=== PATIENT | male | born 1980 | race Caucasian/White ===

== ENCOUNTER 2021-04-19 16:02 | Emergency (ER) | payer OTHER, SELFPAY ==
--- NOTE | ~2021-04-19 | XR_ITS ---
EXAMINATION: XR shoulder LT min 2V INDICATION: Left shoulder pain TECHNIQUE: Four views of the left shoulder are submitted. COMPARISON: 07/24/2017 FINDINGS: There is no acute fracture. Again noted is an old healed fracture of the greater tuberosity of humerus. There is moderate glenohumeral joint osteoarthritis. The acromioclavicular joint is norm al. Soft tissues are unremarkable. IMPRESSION: 1. Osteoarthritis without acute osseous abnormality. Reviewed, dictated and finalized at location B. TILE INSTALLATION HELPER
--- NOTE | 2021-04-19 16:15 | ED.UPPEXIN ---
HPI - Extremity Injury (Upper) General Chief Complaint: Extremity Injury, Upper Stated Complaint: LT shoulder injury Source: patient Mode of arrival: ambulatory Limitations: no limitations History of Present Illness HPI narrative: 41-year-old man comes in today complaining of left shoulder pain that occurred 1 hour prior to presentation at the emergency department. Patient states that he was carrying something heavy when he lost his footing and fell. The heavy object pulled on his arm as he fell to the ground. He denies any other injuries. He denies any numbness or tingling. He has decreased range of motion. He denies prior shoulder surgeries or injuries. complaint: injury to: left Onset (ago): hour(s) (1) Other injuries: none Handedness: right Relieving factors: rest Exacerbating factors: movement of extremity Context: fall and injury Associated symptoms: denies other symptoms Related Data Allergies Allergy/AdvReac Type Severity Reaction Status Date / Time ketorolac Allergy Intermediate HIVES Verified 10/09/17 18:51 Penicillins Allergy Unknown Swelling Verified 10/09/17 18:51 Review of Systems Review of Systems: All systems reviewed & are unremarkable except as noted in HPI and below Cardiovascular: Cardiovascular: Denies chest pain and Denies radiating jaw, neck or arm pain Respiratory: Respiratory: Denies cough and Denies dyspnea Musculoskeletal: Musculoskeletal: Denies back pain, Reports arthralgias and Denies joint swelling Integumentary/Breasts: Skin/Breast: Denies pruritus, Denies erythema and Denies rash Neurologic: Reports vertigo, Reports dizziness and Reports syncope Hematologic/Lymphatic: Hematologic/Lymphatic: Denies easy bleeding and Denies easy bruising PMFSH Surgical History Surgical History (Updated 04/19/21 @ 16:53 by Basim Fiore MD) H/O elbow surgery History of left knee surgery History of surgery on right wrist Social History Social History (Updated 04/19/21 @ 16:53 by Basim Fiore MD) Smoking status: Current every day smoker Substance use: current Substance use type: marijuana Other substance usage details: Occasional Living arrangements: with family Occupation/Education: occupation Additional occupation/education comments: Car detailing Exam Const: General: healthy appearing and alert Orientation/consciousness: patient oriented x3 Limitations: no limitations Other: [id number] acute distress. HENMT: Head: normal to inspection Eyes: Conjunctivae: conjunctivae normal Pupils: Equal, round and reactive pupils present EOM: EOMs intact bilaterally Resp: Effort & Inspection: normal respiratory effort and not labored Auscultation: clear to auscultation bilaterally, no rales, no rhonchi and no wheezes Cardio: Rate: regular rate Rhythm: regular rhythm Heart sounds: no murmurs Skin: General skin exam: normal color, no jaundice and no pallor Rashes: no rashes Neuro: General: patient oriented x3, moves all extremities, no focal motor deficits and CN's II-XI intact bilaterally Speech: normal speech Gait exam (Neuro): Normal gait present Extrem: General: normal to inspection and no clubbing, cyanosis or edema Other: Tenderness to palpation at the left shoulder just below the acromion. No abnormal contour or tenderness over the clavicle or scapula. 90 degrees abduction, 90? flexion. Psych: Appearance: grossly normal and well kempt Mental Status: mental status grossly normal Affect: normal affect Attitude: cooperative Thought content: Yes Normal thought content present Course Vital Signs Vital signs: Vital Signs Temperature 36.7 C 04/19/21 16:22 Pulse Rate 97 04/19/21 16:22 Respiratory Rate 16 04/19/21 16:22 Blood Pressure 97/84 L 04/19/21 16:22 Pulse Oximetry 98 04/19/21 16:22 Temperature 36.7 C 04/19/21 16:22 Pulse Rate 97 04/19/21 16:22 Respiratory Rate 16 04/19/21 16:22 Blood Pressure 97/84 L /
[2021-04-19 16:22] VITALS: BP 97/84; PULSE 97; RESP 16; TEMP 36.7; O2SAT 98
[2021-04-19] MEDS: HYDROcodone/acetaminophen (*CRX) 5-325 MG TABLET 1 TAB PO (16:27)
[2021-04-19 17:05] VITALS: BP 138/70; PULSE 80; RESP 18; TEMP 37; O2SAT 98
== END 2021-04-19 17:06 | disposition home or self-care (01) ==
PROVIDERS: Emergency Provider Emergency Medicine; PCP Physician Assistant
DX: S46.912A Strain of unspecified muscle, fascia and tendon at shoulder and upper arm level, left arm, initial encounter (principal); W19.XXXA Unspecified fall, initial encounter
CPT/HCPCS: 73030; 99283; A9270

== ENCOUNTER 2021-06-27 20:28 | Emergency (ER) | payer OTHER, SELFPAY ==
--- NOTE | ~2021-06-27 | XR_ITS ---
XR chest 1V portable DATE: 06/27/2021 21:35 INDICATION: Cough TECHNIQUE: Portable upright AP chest on 06/27/2021 at 2131 hours COMPARISON: None FINDINGS: Normal heart size. No hilar or mediastinal enlargement. No pulmonary infiltrate or consolid ation, pleural effusion or pulmonary vascular congestion or pneumothorax. IMPRESSION: No active cardiopulmonary disease Reviewed, dictated and finalized at location A. P ACCOUNT DIRECTOR
[2021-06-27 20:36] VITALS: BP 124/86; PULSE 96; RESP 20; TEMP 36.9; O2SAT 100
--- NOTE | 2021-06-27 21:35 | ED.GENADULT ---
HPI - General Adult General Chief complaint: Upper Respiratory Infection Stated complaint: bodyaches, cough Time Seen by Provider: 06/27/21 21:25 Source: patient History of Present Illness HPI narrative: Patient is a 41 y/o male complaining of cough for 5 days. There is no alleviating or exacerbating factor. His cough is mostly dry cough. He also has sore throat, vomiting and diarrhea. He lost sense of taste and smell. He states that he has been vaccinated against COVID. Related Data Allergies Allergy/AdvReac Type Severity Reaction Status Date / Time ketorolac Allergy Intermediate HIVES Verified 10/09/17 18:51 Penicillins Allergy Unknown Swelling Verified 10/09/17 18:51 Review of Systems Constitutional: Constitutional: Denies chills, Denies fever(s), Reports headache(s) and Denies weakness Eyes: Eyes: Denies blurry vision ENT: Reports headache(s), Denies neck pain and Reports sore throat Cardiovascular: Cardiovascular: Denies chest pain and Denies dyspnea Respiratory: Respiratory: Reports cough and Denies dyspnea Gastrointestinal: Gastrointestinal: Denies abdominal pain, Reports diarrhea, Reports nausea and Reports vomiting Genitourinary: Genitourinary: Denies hematuria and Denies dysuria Musculoskeletal: Musculoskeletal: Denies back pain, Reports myalgias and Denies neck pain Neurologic: Reports headache(s) and Denies weakness [facility] Surgical History Surgical History (Updated 04/19/21 @ 16:53 by Basim Fiore MD) H/O elbow surgery History of left knee surgery History of surgery on right wrist Social History Social History (Updated 04/19/21 @ 16:53 by Basim Fiore MD) Smoking status: Current every day smoker Substance use: current Substance use type: marijuana Other substance usage details: Occasional Additional occupation/education comments: Car detailing Exam Const: General: no acute distress and well developed Orientation/consciousness: oriented to person, oriented to place, oriented to time and patient oriented x3 HENMT: Head: normocephalic Ears: external ears normal General nose exam: Normal external nose present Eyes: General: appearance normal, both eyes and all related structures Conjunctivae: conjunctivae normal Neck: Neck: normal visual inspection and full ROM Chest: Chest palpation & inspection: normal inspection of the chest and no tenderness Resp: Effort & Inspection: normal respiratory effort Auscultation: clear to auscultation bilaterally Cardio: Rate: regular rate Rhythm: regular rhythm GI: GI Palp: No abdominal tenderness and Yes Soft to palpation Skin: General skin exam: normal color and turgor normal Neuro: General: oriented to person, oriented to place, oriented to time and patient oriented x3 Cognition (Neuro): normal cognition Extrem: General: normal to inspection, full ROM and no pedal edema Psych: Appearance: grossly normal Mental Status: mental status grossly normal Affect: normal affect Course Vital Signs Vital signs: Vital Signs Temperature 36.9 C 06/27/21 20:36 Pulse Rate 96 06/27/21 20:36 Respiratory Rate 20 06/27/21 20:36 Blood Pressure 124/86 06/27/21 20:36 Pulse Oximetry 100 06/27/21 20:36 Temperature 36.9 C 06/27/21 20:36 Pulse Rate 76 06/27/21 22:57 Respiratory Rate 16 06/27/21 22:57 Blood Pressure 124/86 06/27/21 20:36 Pulse Oximetry 96 06/27/21 22:57 Medical Decision Making Vital Signs Vital Signs: Vital Signs Temperature 36.9 C 06/27/21 20:36 Pulse Rate 96 06/27/21 20:36 Respiratory Rate 20 06/27/21 20:36 Blood Pressure 124/86 06/27/21 20:36 Pulse Oximetry 100 06/27/21 20:36 Temperature 36.9 C 06/27/21 20:36 Pulse Rate 76 06/27/21 22:57 Respiratory Rate 16 06/27/21 22:57 Blood Pressure 124/86 06/27/21 20:36 Pulse Oximetry 96 06/27/21 22:57 Lab Data Result diagrams: 06/27/21 21:54 06/27/21 21:54 Labs:
[2021-06-27] MEDS: ONDANSETRON INJ 4 MG/2 ML VIAL IV PUSH (21:56)
[2021-06-27] MEDS: SODIUM CHLORIDE 0.9% IV 1,000 ML 999 ML IV CONT (21:56)
[2021-06-27 22:04] LABS: Basophils Percent Auto 0.3 % (0.2-1.2); Eosinophils Percent Auto 0.6 % (0-4.4); Hemoglobin 15.9 g/dL (14.0-18.0); Immature Granulocyte Absolute 0.02 K/mm3 (0.00-0.031); Immature Granulocyte Percent A 0.3 % (0-0.5); Lymphocytes Absolute Auto 0.67 K/mm3 (0.9-3.2); Lymphocytes Percent Auto 9.7 % (18.3-44.2); Mean Corpuscular HGB Conc 35.3 g/dl (32-36); Mean Corpuscular Hemoglobin 31.9 pg (26-34); Mean Corpuscular Volume 90.4 fl (80-100); Mean Platelet Volume 10.2 fl (7.4-10.4); Monocytes Absolute Auto 0.5 K/mm3 (0.1-0.6); Monocytes Percent Auto 7.2 % (2.6-8.5); Neutrophils Absolute Auto 5.7 K/mm3 (1.3-6.7); Neutrophils Percent Auto 81.9 % (45.5-73.1); Platelet Count Result 203 k/mm3 (150-375); Red Blood Count 4.98 M/mm3 (4.6-6.20); Red Cell Distribution Width 12.2 % (11.5-14.5); White Blood Count 6.9 K/mm3 (4.5-10.0)
[2021-06-27 22:15] LABS: Alanine Aminotransferase 21 U/L (4-50); Albumin Level 4.4 g/dL (3.5-5.1); Alkaline Phosphatase 61 U/L (38-126); Anion Gap 9 mmol/L (8-16); Aspartate Amino Transferase 29 U/L (17-59); Bilirubin,Total 0.6 mg/dL (0.2-1.3); Blood Urea Nitrogen 10 mg/dL (9-20); Calcium 8.9 mg/dL (8.4-10.2); Carbon Dioxide 25 mmol/L (22-30); Chloride 103 mmol/L (98-107); Estimated CRCL calculation 69 ml/min; Estimated Glomerular Filt Rate > 60; Glucose 104 mg/dL (65-110); Potassium 3.4 mmol/L (3.4-5.0); Sodium 137 mmol/L (137-145)
[2021-06-27 22:45] LABS: Add Urine Microscopic? YES; Appearance Urine Clear (Clear); Bilirubin Urine Negative (Negative); Blood Urine Negative (Negative); Color Urine Yellow (Yellow); Glucose Urine UA Negative (Negative); Ketones Urine Negative (Negative); Leukocyte Esterase Ur Negative LEU/UL (Negative); Mucus Urine Moderate /lpf; Nitrate Urine Negative (Negative); Protein Urine Negative (Negative); RBC Urine 0-2 /hpf (0-2); Specific Grav Ur 1.024 (1.001-1.035); WBC Urine 0-3 /hpf
[2021-06-27 22:57] VITALS: PULSE 76; RESP 16; O2SAT 96
[2021-06-27 23:40] LABS: Influenza A QL RT-PCR Negative (Negative); Influenza B QL RT-PCR Negative (Negative); SARS-CoV-2 RNA PCR Positive
== END 2021-06-28 00:21 | disposition home or self-care (01) ==
PROVIDERS: Emergency Provider Emergency Medicine; PCP Physician Assistant
DX: U07.1 COVID-19 (principal); R11.2 Nausea with vomiting, unspecified; R19.7 Diarrhea, unspecified; F17.200 Nicotine dependence, unspecified, uncomplicated
CPT/HCPCS: 36415; 71045; 80053; 81001; 85025; 87081; 87502; 87804; 87880; 96361; 96374; 99284; C9803; J2405; J7030; U0003; U0005

== ENCOUNTER 2021-06-30 20:09 | Emergency (ER) | payer OTHER, SELFPAY ==
--- NOTE | ~2021-06-30 | XR_ITS ---
EXAMINATION: XR chest 1V portable DATE: 06/30/2021 21:19 INDICATION: Dyspnea. TECHNIQUE: A single frontal view of the chest was obtained. COMPARISON: Chest single view 06/27/2021 FINDINGS: There is mild atelectasis in left lower lung zone. No pleural effusion or pneumothorax. The heart size is normal. IMPRESSION: 1. Mild atelectasis in left lower lung zone. Reviewed, dictated and finalized at location A. ER CARE CASE MANAGER
[2021-06-30 20:57] VITALS: BP 101/80; PULSE 64; RESP 18; TEMP 37.3; O2SAT 96
--- NOTE | 2021-06-30 21:05 | ED.SOB ---
HPI - SOB/Dyspnea General Chief Complaint: Unspecified Stated Complaint: COVID+ trouble breathing, chest pain Source: patient and RN notes reviewed Mode of arrival: ambulatory Limitations: no limitations History of Present Illness HPI Narrative: Patient tested positive for COVID 3 days ago. He states now he is having some pain in his chest wall and feels harder to breathe when he exerts himself just getting around the house. Denies any lower extremity calf tenderness. MD elicited complaint: cough and pain with inspiration Onset (ago): day(s) (1) Context: recent illness ( tested positive for COVID 3 days ago.) Timing: progressively worsening Severity: moderate Exacerbating factors: exertion and coughing Relieving factors: nothing Associated symptoms: pain with inspiration and cough Treatment prior to arrival: none Related Data Home oxygen amount: none Allergies Allergy/AdvReac Type Severity Reaction Status Date / Time ketorolac Allergy Intermediate HIVES Verified 10/09/17 18:51 Penicillins Allergy Unknown Swelling Verified 10/09/17 18:51 Review of Systems Review of Systems: All systems reviewed & are unremarkable except as noted in HPI and below Cardiovascular: Cardiovascular: Denies chest pain, Denies rapid heart rate and Denies radiating jaw, neck or arm pain Respiratory: Respiratory: Reports as per HPI, Reports chest congestion, Reports cough and Reports dyspnea Gastrointestinal: Gastrointestinal: Denies nausea and Denies vomiting Endocrine: Endocrine: Denies excessive sweating PMFSH Past Medical History Medical History (Updated 06/30/21 @ 21:51 by Hira Carrington MD) Anxiety and depression Surgical History Surgical History H/O elbow surgery History of left knee surgery History of surgery on right wrist Social History Social History Smoking status: Current every day smoker Substance use: current Substance use type: marijuana Other substance usage details: Occasional Additional occupation/education comments: Car detailing Exam Const: General: healthy appearing, no acute distress and alert Nutritional Appearance: well nourished and thin Orientation/consciousness: patient oriented x3 HENMT: Head: normal to inspection Ears: external ears normal Face and sinus: normal facial exam Mouth: Yes moist mucous membranes Eyes: Conjunctivae: conjunctivae normal Pupils: Equal, round and reactive pupils present EOM: EOMs intact bilaterally Neck: Neck: normal visual inspection Resp: Effort & Inspection: normal respiratory effort Auscultation: clear to auscultation bilaterally Cardio: Rate: regular rate Rhythm: regular rhythm GI: GI Palp: Yes Soft to palpation and No Tenderness to palpation present (GI) Auscultation: normal bowel sounds Back/Spine/Pelvis: Cervical Spine: cervical ROM normal Thoracic/Lumbar Spine: thoraco-lumbar ROM normal Skin: General skin exam: normal color Rashes: no rashes Neuro: General: patient oriented x3, moves all extremities, no meningeal signs, no focal motor deficits and CN's II-XI intact bilaterally Speech: normal speech Gait exam (Neuro): Normal gait present Extrem: General: normal to inspection and no clubbing, cyanosis or edema Psych: Mental Status: mental status grossly normal Affect: normal affect Attitude: cooperative Thought content: Yes Normal thought content present Course Course Emergency Course: patient advised that he is not needing supplemental oxygen and he is not in any respiratory distress. He does not have any comorbidities that would indicate that he should be on any outpatient therapy. At this time he should continue Tylenol Motrin and continue to quarantine as directed. Vital Signs Vital signs: Vital Signs Temperature 37.3 C 06/30/21 20:57 Pulse Rate 64 06/30/21 20:57 Respiratory Rate 18 06/30/21 20:57 Blood Pressur
[2021-06-30 21:26] LABS: Basophils Absolute Auto 0.02 K/mm3 (0.00-0.10); Basophils Percent Auto 0.5 % (0.0-1.0); Eosinophils Absolute Auto 0.01 K/mm3 (0.02-0.50); Eosinophils Percent Auto 0.2 % (1.0-6.0); Hematocrit 44.9 % (40.0-54.0); Immature Granulocyte Absolute 0.01 K/mm3 (0.00-0.00); Immature Granulocyte Percent A 0.2 % (0.0-0.0); Immature Platelet Fraction Pct 3.8 % (1.0-7.0); Lymphocytes Absolute Auto 1.41 K/mm3 (1.10-4.50); Mean Corpuscular HGB Conc 33.4 g/dL (32.0-36.0); Mean Corpuscular Hemoglobin 31.6 pg (27.0-31.0); Mean Corpuscular Volume 94.5 fL (78.0-102.0); Mean Platelet Volume 10.9 fl (8.7-11.0); Monocytes Absolute Auto 0.35 K/mm3 (0.10-0.90); Monocytes Percent Auto 8.4 % (2.0-11.0); Neutrophils Absolute Auto 2.4 K/mm3 (1.7-7.2); Neutrophils Percent Auto 56.7 % (50.0-70.0); Platelet Count Result 128 K/mm3 (150-420); Red Blood Count 4.75 M/mm3 (4.70-6.10); Red Cell Distribution Width 12.1 % (11.6-14.4); White Blood Count 4.2 K/mm3 (4.8-10.8)
[2021-06-30 21:37] LABS: D Dimer 0.19 mg/L (0.19-0.50)
[2021-06-30 21:38] LABS: Alanine Aminotransferase 21 U/L (16-63); Albumin Level 3.4 g/dL (3.4-5.0); Alkaline Phosphatase 55 U/L (46-116); Anion Gap 10 mmol/L (8-16); Aspartate Amino Transferase 17 U/L (15-37); Bilirubin,Total 0.2 mg/dL (0.00-1.00); Blood Urea Nitrogen 12 mg/dL (7-18); CRP < 0.5 mg/dL (0.0-0.9); Calcium 7.9 mg/dL (8.5-10.1); Carbon Dioxide 27 mmol/L (21-32); Chloride 103 mmol/L (98-108); Estimated CRCL calculation 58 ml/min; Estimated Glomerular Filt Rate 58; Glucose 91 mg/dL (70-99); Osmolality Calculated 289 mOsm/kg (285-295); Potassium 3.3 mmol/L (3.5-5.1); Sodium 140 mmol/L (136-145); Total Protein 6.8 g/dL (6.4-8.2)
[2021-06-30 21:43] LABS: Lactic Acid Reflex 0.9 mmol/L (0.4-2.0)
== END 2021-06-30 22:00 | disposition home or self-care (01) ==
PROVIDERS: Emergency Provider Emergency Medicine; PCP Physician Assistant
DX: U07.1 COVID-19 (principal)
CPT/HCPCS: 36415; 71045; 80053; 83605; 83735; 85025; 85055; 85380; 86140; 99282; 99283

== ENCOUNTER 2022-05-11 10:50 | Emergency (ER) | payer OTHER, SELFPAY ==
[2022-05-11 10:58] VITALS: BP 149/91; PULSE 108; RESP 20; TEMP 38.1; O2SAT 99
--- NOTE | 2022-05-11 11:44 | ED.URI ---
HPI - URI/Sore Throat General Chief Complaint: Upper Respiratory Infection Stated Complaint: Sore Throat/Headache Time Seen by Provider: 05/11/22 11:44 Source: patient and RN notes reviewed Mode of arrival: ambulatory Limitations: no limitations History of Present Illness HPI Narrative: 42-year-old male presenting for complaint of headache, body aches, sinus pressure/congestion, cough, Vomiting,fever/chills. onset 2 days. endorses throat pain with coughing. Endorses is sick with similar symptoms. Exposure to influenza. Denies shortness of breath, wheezing, or chest pain. He has taken ibuprofen for symptoms. MD elicited complaint: cough Related Data Allergies Allergy/AdvReac Type Severity Reaction Status Date / Time ketorolac Allergy Intermediate HIVES Verified 05/11/22 11:09 Penicillins Allergy Unknown Swelling Verified 05/11/22 11:09 Review of Systems Review of Systems: ROS per HPI [facility] Past Medical History Medical History Anxiety and depression Surgical History Surgical History H/O elbow surgery History of left knee surgery History of surgery on right wrist Social History Social History Smoking status: Current every day smoker Substance use: current Substance use type: marijuana Other substance usage details: Occasional Additional occupation/education comments: Car detailing Exam Narrative: GENERAL: Ill-appearing, nontoxic EYES: PERRLA, conjunctivae clear ENT: Mucous membranes moist. Oropharynx erythematous without lesions or exudate, no drooling, no hoarseness, no trismus, uvula midline. No tripod positioning, muffled voice, soft palate or pharyngeal wall bulging NECK: Supple. No lymphadenopathy CHEST: Clear to auscultation, breath sounds equal. No wheezing, rhonchi, rales, or stridor. No respiratory distress, speaks in full sentences. HEART: Regular rate and rhythm. SKIN: Warm, dry, no rash. NEURO: Alert and oriented x3. Course Course Emergency Course: Patient is aware of diagnosis, understands and agrees to treatment plan. Anticipatory guidance given. Patient agrees to follow-up as directed and is aware of reasons to seek care at the emergency department. Portions of this record may have been created with voice recognition software Level of Care: Express Care Visit Vital Signs Vital signs: Vital Signs Temperature 100.5 F H 05/11/22 10:58 Pulse Rate 108 H 05/11/22 10:58 Respiratory Rate 20 05/11/22 10:58 Blood Pressure 149/91 H 05/11/22 10:58 Pulse Oximetry 99 05/11/22 10:58 Oxygen Delivery Room Air 05/11/22 10:58 Temperature 100.5 F H 05/11/22 10:58 Pulse Rate 108 H 05/11/22 10:58 Respiratory Rate 20 05/11/22 10:58 Blood Pressure 149/91 H 05/11/22 10:58 Pulse Oximetry 99 05/11/22 10:58 Oxygen Delivery Room Air 05/11/22 10:58 reviewed MDM - URI/Sore Throat MDM Narrative Medical decision making narrative: influenza covid and strep negative; reviewed with patient. Advised supportive measures and signs/symptoms to go to the ER. Pt is appropriate for outpt treatment and f/u. Differential Diagnosis Differential diagnosis: Likely upper respiratory infection, sinusitis and viral infection Lab Data Labs: Influenza A Screen Negative Reference Range: Negative Influenza B Screen Negative Reference Range: Negative Strep Screen Presumptive Negative *(Reference Range: Negative)* Discharge Plan Discharge Clinical Impression: Viral infection Patient Disposition: Home, Self-Care Condition: Stable Instructions: Antibiotic Form, Viral Syndrome (ED) Additional Instructions:
== END 2022-05-11 12:10 | disposition home or self-care (01) ==
PROVIDERS: Emergency Provider Nurse Practitioner Family; PCP Physician Assistant
DX: B34.9 Viral infection, unspecified (principal); Z20.822 Contact with and (suspected) exposure to COVID-19
CPT/HCPCS: 87081; 87426; 87804; 87880; 99213; C9803; G0463

== ENCOUNTER 2023-11-19 15:59 | Emergency (ER) | payer OTHER, SELFPAY ==
--- NOTE | ~2023-11-19 | XR_ITS ---
AP and oblique views of the left ribs, and PA and lateral chest radiographs Clinical History: Pain Findings: Subacute healing right rib fracture deformity is noted the lateral right ninth rib. Lungs a re clear, without focal consolidation or pleural effusion. Cardiomediastinal contour is within normal limits. Soft tissues are unremarkable. Impression: No acute fracture seen on the left side. Subacute healing right ninth rib fracture noted. Clear lungs. Reviewed, dictated and finalized at [facility]. Impression: No acute fracture seen on the left side. Subacute healing right ninth rib fract ure noted. Clear lungs.
[2023-11-19 16:02] VITALS: BP 121/76; PULSE 86; RESP 20; TEMP 36.5; O2SAT 95
--- NOTE | 2023-11-19 16:11 | PC.NURSE ---
Pt c/o left chest rib pain that radiates aound left back, pt holding & rubbing site. No shortness of breath noted, lung sounds clear through out. Pt c/o increase pain with deep breathes
[2023-11-19] MEDS: ACETAMINOPHEN 500 MG TABLET 1000 MG PO (17:16)
[2023-11-19] MEDS: IBUPROFEN 600 MG TABLET PO (17:17)
[2023-11-19] MEDS: LIDOCAINE 5% PATCH 1 PATCH TRANSDERM (17:34)
--- NOTE | 2023-11-19 17:34 | ED.FALL ---
HPI - Fall General Chief Complaint: Fall Stated Complaint: fall, left rib pain Time Seen by Provider: 11/19/23 16:10 Source: patient Mode of arrival: ambulatory Limitations: no limitations History of Present Illness HPI Narrative: Patient is a 43-year-old male who presents the ED with report of left-sided rib pain. Patient reports he was playing catch earlier with a baseball and he dove to catch the ball and landed with his left ribs on top of the baseball. He complains of pain to his left upper ribs. Worse with taking deep breath. Denies feeling short of breath. Denies any other injury, HI, LOC. Patient is currently with [facility]. Related Data Allergies Allergy/AdvReac Type Severity Reaction Status Date / Time ketorolac Allergy Intermediate HIVES Verified 11/19/23 16:09 Review of Systems Review of Systems: CONSTITUTIONAL: Denies fever, chills, or sweats. RESPIRATORY: See HPI GASTROINTESTINAL: Denies abdominal pain, nausea, vomiting. MUSCULOSKELETAL: See HPI. NEUROLOGIC: Denies headache, dizziness, numbness, or weakness. 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 HEAD: Normocephalic, atraumatic. RESPIRATORY: Airway patent, respirations nonlabored. Clear to auscultation bilaterally, no rales, rhonchi, wheezing. No splinting. No focal lung sounds. CARDIOVASCULAR: Regular rate and rhythm without murmurs, rubs, or gallops. ABDOMINAL: Soft, no tenderness throughout abdomen, nondistended. Normoactive BS. MUSCULOSKELETAL: Moves all extremities. No gross deformities. Tenderness to palpation of left upper lateral chest wall extending into axillary region. SKIN: Warm, dry, normal color. NEURO: A&O X3. Speech clear. PSYCHIATRIC: Appropriate mood and affect. Normal interaction. Course Vital Signs Vital signs: Vital Signs Temperature 97.7 F 11/19/23 16:02 Pulse Rate 86 11/19/23 16:02 Respiratory Rate 20 11/19/23 16:02 Blood Pressure 121/76 11/19/23 16:02 Pulse Oximetry 95 11/19/23 16:02 Oxygen Delivery Room Air 11/19/23 16:02 Temperature 97.8 F 11/19/23 17:37 Pulse Rate 63 11/19/23 17:37 Respiratory Rate 16 11/19/23 17:37 Blood Pressure 116/80 11/19/23 17:37 Pulse Oximetry 96 11/19/23 17:37 Oxygen Delivery Room Air 11/19/23 16:02 MDM - Fall MDM Narrative Medical decision making narrative: Patient presented to ED with injury to left ribs. X-ray of chest with left ribs without evidence of rib fracture. Does show old healing rib fracture. No focal lung findings. Patient updated on imaging results. Given incentive spirometer. Will prescribe lidocaine patches. Advised to continue Tylenol/ibuprofen, recommended he follow-up with PCP for further evaluation and repeat chest imaging in the future. Given strict return precautions. Discharged in stable condition. Medical Records Attestation: I reviewed the patient's medical records. Imaging Data Attestation: I personally reviewed and interpreted this imaging study as follows: Radiologist's impression: ITS Impressions Ribs w/Chest X-Ray 11/19/23 16:41 Impression: No acute fracture seen on the left side. Subacut
[2023-11-19 17:37] VITALS: BP 116/80; PULSE 63; RESP 16; TEMP 36.6; O2SAT 96
--- NOTE | 2023-11-19 17:38 | PC.NURSE ---
Pt unable to stay awake during assessment. When RN wakes pt up, pt states pain not improving and would like stronger pain medicine RN instructed pt on Lidocaine patch, reminded pt he is currently taking Suboxone, narcotics are contraindicated. Pt voices understanding
== END 2023-11-19 17:55 | disposition home or self-care (01) ==
PROVIDERS: Emergency Provider Physician Assistant; PCP Physician Assistant
DX: S20.212A Contusion of left front wall of thorax, initial encounter (principal); F41.9 Anxiety disorder, unspecified; F32.A Depression, unspecified; W19.XXXA Unspecified fall, initial encounter
CPT/HCPCS: 71046; 71100; 99283; A9270

== ENCOUNTER 2023-11-20 05:05 | Emergency (ER) | payer OTHER, SELFPAY ==
[2023-11-20 05:04] VITALS: BP 124/61; PULSE 97; RESP 18; TEMP 36.9; O2SAT 96
--- NOTE | 2023-11-20 05:08 | ED.FALL ---
HPI - Fall General Chief Complaint: Fall Stated Complaint: rib pain x1 day Time Seen by Provider: 11/20/23 05:07 History of Present Illness HPI Narrative: Patient presenting here with left rib pain, he had been here earlier in the night for the same complaint, had been taking Tylenol and ibuprofen and was given a prescription for lidocaine patch but has not received yet. Related Data Allergies Allergy/AdvReac Type Severity Reaction Status Date / Time ketorolac Allergy Intermediate HIVES Verified 11/19/23 16:09 Review of Systems Review of Systems: All systems reviewed & are unremarkable except as noted in HPI and below PMFSH Past Medical History Medical History Anxiety and depression Surgical History Surgical History H/O elbow surgery History of left knee surgery History of surgery on right wrist Social History Social History Smoking status: Current every day smoker Substance use: current Substance use type: marijuana Other substance usage details: Occasional Living arrangements: with family Occupation/Education: occupation Additional occupation/education comments: Car detailing Exam Narrative: EXAMINATION OF ORGAN SYSTEMS/BODY AREAS: Constitutional: Vital signs per nursing GENERAL:[No acute distress, non-toxic appearing.] HEAD: Normal with no signs of head trauma. EYES: EOMI, conjunctiva normal ENT: Hearing grossly intact LUNGS: Nonlabored breathing.Tenderness to palpation to L anterior rib HEART: [Regular rate and rhythm] ABD: [Soft], [nontender to palpation] EXT: Normal range of motion SKIN: [No rashes or lesions.] No bruising. NEURO: [Alert and oriented x 3. No gross focal sensory or strength deficits.] PSYCH: Normal affect Course Vital Signs Vital signs: Vital Signs Temperature 98.5 F 11/20/23 05:04 Pulse Rate 97 11/20/23 05:04 Respiratory Rate 18 11/20/23 05:04 Blood Pressure 124/61 11/20/23 05:04 Pulse Oximetry 96 11/20/23 05:04 Oxygen Delivery Room Air 11/20/23 05:04 Temperature 98.5 F 11/20/23 05:04 Pulse Rate 97 11/20/23 05:04 Respiratory Rate 18 11/20/23 05:04 Blood Pressure 124/61 11/20/23 05:04 Pulse Oximetry 96 11/20/23 05:04 Oxygen Delivery Room Air 11/20/23 05:04 MDM - Fall MDM Narrative Medical decision making narrative: Patient seen earlier for fall with left rib pain, rib x-rays negative, no new injury, he would like to have a lidocaine patch, this is provided, I will also give a small dose of muscle relaxant prescription and have him follow-up with primary care doctor. On re-evaluation he is snoring and resting comfortably in bed Discharge Plan Discharge Clinical Impression: Contusion of rib on left side Patient Disposition: Home, Self-Care Condition: Stable Instructions: Antibiotic Form, Rib Contusion (ED) Additional Instructions: Please follow-up with your primary care doctor, take medications as prescribed, you can always return to the ER if you feel worse. Prescriptions: New methocarbamol 750 mg tablet 750 mg PO Q6H Qty: 20 0RF No Action ibuprofen 800 mg tablet 800 mg PO TID PRN (Reason: pain) Qty: 15 0RF benzonatate 200 mg capsule 200 mg PO TID PRN (Reason: cough) Qty: 20 0RF ondansetron 4 mg tablet,disintegrating 4 mg PO Q8H PRN (Reason: nausea and vomiting) Qty: 20 0RF lidocaine 5 % adhesive patch,medicated 1 patch topical DAILY Qty: 15 0RF Rx Instructions: leave on most painful area for up to 12 hrs Follow-up/Referrals: Dagoberto,SANJAY Wolf [Primary Care Provider] - 2 Days
[2023-11-20] MEDS: LIDOCAINE 5% PATCH 1 PATCH TRANSDERM (05:10)
== END 2023-11-20 05:39 | disposition home or self-care (01) ==
PROVIDERS: Emergency Provider Emergency Medicine; PCP Physician Assistant
DX: S20.212D Contusion of left front wall of thorax, subsequent encounter (principal); F17.200 Nicotine dependence, unspecified, uncomplicated; W19.XXXD Unspecified fall, subsequent encounter
CPT/HCPCS: 99283; A9270

== ENCOUNTER 2023-12-08 05:42 | Observation (INO) | payer OTHER, SELFPAY ==
[2023-12-08] VITALS (20 sets, daily range): BP systolic 83–139; BP diastolic 46–77; PULSE 67–146; RESP 12–18; TEMP 36.5–37.8; O2SAT 92–100
--- NOTE | ~2023-12-08 | CT_ITS ---
Clinical Indication: Shortness of breath CT Scan of the Chest with Contrast: Technique: Contiguous sections were acquired throughout the chest after intravenous administration of 100 cc of Omnipaque 350. Dose reduction technique was used on this scan by utilizing automated expos ure control and iterative reconstruction technique. The dose-length product (DLP) was 263.79 mGy-cm. Findings: There is no evidence of any significant mediastinal, hilar or axillary lymphadenopathy. There is no f illing defect in the pulmonary arterial tree to suggest pulmonary embolus. There is no evidence of ao rtic dissection or aneurysm. There is no evidence of pleural or pericardial effusion. There is patchy groundglass opacity and consolidation bilaterally, right lung worse than left, most e xtensive at the right lower lobe. Images through the upper abdomen reveal no abnormalities. Impression: Patchy bilateral pneumonia, worst in the right lower lobe. No pulmonary embolus. Reviewed, dictated and finalized at [facility]. Impression: Patchy bilateral pneumonia, worst in the right lower lobe. No pulmonary embolus.
--- NOTE | ~2023-12-08 | XR_ITS ---
Portable chest x-ray Comparison: 11/19/2023 Clinical History: Chest pain Findings: Lungs are clear, without focal consolidation or pleural effusion. Cardiomediastinal silho uette is stable. Healing right ninth rib fracture again noted. Impression: Clear lungs. Reviewed, dictated and finalized at location . Impression: Clear lungs.
--- NOTE | 2023-12-08 05:51 | ECG_ITS ---
Test Date: 2023-12-08 05:51:39 Measurements Intervals [place] Rate: 139 P: 44 FL: 113 QRS: 5 QRSD: 78 T: 55 QT: 299 QTc: 456 Interpretive Statements SINUS TACHYCARDIA OTHERWISE NORMAL ELECTROCARDIOGRAM No previous ECG available for comparison Electronically Signed On 12-08-2023 15:43:14 CDT by Sergio Velázquez M.D.
[2023-12-08 06:13] LABS: Basophils Percent Auto 0.2 % (0.2-1.2); Eosinophils Absolute Auto 0.2 K/mm3 (0-0.3); Eosinophils Percent Auto 1.4 % (0-4.4); Hematocrit 40.8 % (42.0-52.0); Hemoglobin 13.3 g/dL (14.0-18.0); Immature Granulocyte Absolute 0.05 K/mm3 (0.00-0.031); Immature Granulocyte Percent A 0.3 % (0-0.5); Lymphocytes Absolute Auto 0.97 K/mm3 (0.9-3.2); Lymphocytes Percent Auto 5.9 % (18.3-44.2); Mean Corpuscular HGB Conc 32.6 g/dl (32-36); Mean Corpuscular Hemoglobin 30.7 pg (26-34); Mean Corpuscular Volume 94.2 fl (80-100); Mean Platelet Volume 9.3 fl (7.4-10.4); Monocytes Absolute Auto 0.8 K/mm3 (0.1-0.6); Monocytes Percent Auto 4.6 % (2.6-8.5); Neutrophils Absolute Auto 14.3 K/mm3 (1.3-6.7); Neutrophils Percent Auto 87.6 % (45.5-73.1); Platelet Count Result 302 k/mm3 (150-375); Red Blood Count 4.33 M/mm3 (4.6-6.20); Red Cell Distribution Width 12.5 % (11.5-14.5); White Blood Count 16.3 K/mm3 (4.5-10.0)
[2023-12-08 06:23] LABS: Prothrombin Time 13.5 Seconds (11.1-14.7)
[2023-12-08 06:24] LABS: Partial Thromboplastin Time 34.9 Seconds (22.3-36.8)
[2023-12-08 06:27] LABS: Alanine Aminotransferase 47 U/L (6-50); Albumin Level 3.9 g/dL (3.5-5.1); Alkaline Phosphatase 78 U/L (38-126); Anion Gap 5 mmol/L (4-12); Aspartate Amino Transferase 44 U/L (17-59); Bilirubin,Total 0.4 mg/dL (0.2-1.3); Blood Urea Nitrogen 18 mg/dL (9-20); Calcium 8.8 mg/dL (8.4-10.2); Carbon Dioxide 30 mmol/L (22-30); Chloride 102 mmol/L (98-107); Estimated CRCL calculation 82 ml/min; Estimated Glomerular Filt Rate > 60; Glucose 197 mg/dL (65-110); Lipase 22 U/L (23-300); Potassium 4.4 mmol/L (3.4-5.0); Sodium 137 mmol/L (137-145)
[2023-12-08 06:39] LABS: Troponin I < 0.012 ng/mL (0.000-0.034)
--- NOTE | 2023-12-08 07:05 | PC.NURSE ---
blood sugar checked at this time. result 97
[2023-12-08 07:10] LABS: Glucose Point of Care 97 mg/dl (65-105)
[2023-12-08] MEDS: SODIUM CHLORIDE 0.9% IV 1,000 ML 999 ML IV CONT ×2 (07:14→09:21)
--- NOTE | 2023-12-08 07:20 | PC.NURSE ---
pt to CT via stretcher with monitor
--- NOTE | 2023-12-08 07:34 | PC.NURSE ---
pt back in room from CT
--- NOTE | 2023-12-08 07:34 | ED.CHESTPAIN ---
HPI - Chest Pain General Chief Complaint: Chest Pain Stated Complaint: chest pain Time Seen by Provider: 12/08/23 06:53 History of Present Illness HPI narrative: 43-year-old male presents to the emergency department for evaluation for left-sided chest pain. Patient states he had a chest wall injury approximately 3 weeks ago where he landed on a baseball. Patient reports yesterday he began developing some increased chest pain in the develop some shortness of breath today. Patient states that he is normally not on oxygen. Patient denies any prior history of PE or DVT, patient is a smoker. Related Data Home Medications Medication Instructions Recorded Confirmed buprenorphine 12 mg-naloxone 3 mg 1 film sublingual TID 12/08/23 12/08/23 sublingual film (Suboxone) buspirone 30 mg tablet 30 mg PO BID 12/08/23 12/08/23 gabapentin 300 mg capsule 300 mg PO TID 12/08/23 12/08/23 hydroxyzine pamoate 25 mg capsule 50 mg PO BID PRN Anxiety 12/08/23 12/08/23 levetiracetam 500 mg tablet 500 mg PO BID 12/08/23 12/08/23 methocarbamol 750 mg tablet 750 mg PO Q6H PRN Cramps 12/08/23 12/08/23 mirtazapine 15 mg tablet 15 mg PO DAILY 12/08/23 12/08/23 nicotine 21 mg/24 hr daily 1 patch transdermal DAILY 12/08/23 12/08/23 transdermal patch prazosin 1 mg capsule 1 mg PO DAILY 12/08/23 12/08/23 quetiapine 100 mg tablet 200 mg PO DAILY 12/08/23 12/08/23 sertraline 100 mg tablet 100 mg PO DAILY 12/08/23 12/08/23 Allergies Allergy/AdvReac Type Severity Reaction Status Date / Time ketorolac Allergy Intermediate HIVES Verified 12/08/23 10:10 Review of Systems Review of Systems: All systems reviewed & are unremarkable except as noted in HPI and below PMFSH Past Medical History Medical History Anxiety and depression Bipolar disorder Eczema Hernia HTN (hypertension) Migraine PTSD (post-traumatic stress disorder) Seizures Surgical History Surgical History History of cranial reconstruction History of elbow surgery History of left knee surgery History of surgery on right wrist Social History Social History Smoking packs per day: 0.5 Smoking cigarettes per day: 10.0 Years smoked: 27 Smoking pack-years: 13.50 Smoking status: Current every day smoker Tobacco type: cigarettes Alcohol intake: never Substance use: current Substance use type: marijuana Other substance usage details: smokes Last use: 11/17/23 Do You Feel Safe in your Home?: Yes Lack of Transportation: No Lack of Food: Never True Current Housing: I Have Housing Concerned About Future Housing: YES Difficulty Paying Gas/Electric Bills: YES Difficulty Paying for Meds: No Currently Unemployed: YES Education: High School Diploma/GED Difficulty w/ Childcare or Family Care: No Living arrangements: with family Occupation/Education: occupation Additional occupation/education comments: Car detailing Spiritual care concerns: No Exam Narrative: APPEARANCE: Ill-appearing HEAD: normocephalic, atraumatic. EYES: PERRLA/EOMI, conjunctivae clear. NOSE: Normal no drainage EARS:TMS clear with good light reflex. THROAT: Pharynx clear, no exudate. NECK: Supple. No adenopathy, no masses. RESPIRATORY: Airway patent, respirations nonlabored. Clear to auscultation bilaterally, no rales, rhonchi, wheezing. CARDIOVASCULAR: Regular rate and rhythm without murmurs rubs or gallops. ABDOMINAL: Soft, nontender, nondistended, normal bowel sounds MUSCULOSKELETAL: Moves all extremities. Strength/ROM intact, No edema, No calf tenderness. NEURO: Alert. Cranial nerves II through XII intact. Grossly intact SKIN: Warm, dry. Normal Color Course Course Emergency Course: Patient was admitted for pneumonia Vital Signs Vital signs: Vital Signs Temperature 100.0 F H 12/08/23 05:41
[2023-12-08 08:05] LABS: Influenza A QL RT-PCR Negative (Negative); Influenza B QL RT-PCR Negative (Negative); RSV RNA, RT-PCR Negative (Negative); SARS-CoV-2 RNA PCR Negative (Negative)
--- NOTE | 2023-12-08 08:42 | ECG_ITS ---
Test Date: 2023-12-08 08:40:19 Measurements Intervals [place] Rate: 103 P: 44 HI: 131 QRS: 3 QRSD: 89 T: 34 QT: 339 QTc: 445 Interpretive Statements SINUS TACHYCARDIA VOLTAGE CRITERIA FOR LVH [MEETS CRITERIA IN ONE OF: R(aVL), S(V1), R(V5), R(V5/V6)+S(V1)] BORDERLINE ECG Compared to ECG 12/08/2023 05:51:39 R-WAVE VOLTAGE IS MORE SUGGESTIVE OF LVH Electronically Signed On 12-08-2023 15:46:02 CDT by Sergio Velázquez M.D.
[2023-12-08 08:59] LABS: Troponin I 0.034 ng/mL (0.000-0.034)
--- NOTE | 2023-12-08 09:18 | PC.NURSE ---
This RN called dietary at this time and ordered pt a breakfast tray.
--- NOTE | 2023-12-08 10:00 | ADMGEN ---
This patient, Wojciech Bonilla, was admitted to IMU Room 213-01. Patient/family oriented to hospital policies and general routines including ID bracelet, bed and alarms, visiting hours, pain management, procedures, bathroom and other care routines, personal items, smoking policy, room service/diet, and visiting hours. Information on how to activate the Rapid Response Team has been discussed. Patient/Family are encouraged to report perceived risks to care and to ask questions if they do not understand what they are told or what they should do.
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
[2023-12-08] MEDS: GABAPENTIN 300 MG CAPSULE PO ×2 (12:35→16:31)
[2023-12-08 13:16] LABS: Procalcitonin 7.7 ng/mL
[2023-12-08] MEDS: ALBUTEROL SULFATE NEB 2.5 MG/3 ML INH INHALATION ×2 (13:17→20:40)
[2023-12-08] MEDS: BUPRENORPHINE/NALOXONE (*CRX) 4 MG/1 MG SL FILM 3 EACH SUBLINGUAL ×2 (13:34→16:31)
[2023-12-08] MEDS: guaiFENesin 12 HR 600 MG TABCR PO ×2 (13:35→22:02)
[2023-12-08] MEDS: diphenhydrAMINE HCl INJ 50 MG/ML VIAL 25 MG IV PUSH (13:35)
[2023-12-08] MEDS: SODIUM CHLORIDE 0.9% IV 1,000 ML 125 ML IV CONT ×2 (13:35→22:50)
[2023-12-08] MEDS: NICOTINE (*PBKC) 21 MG PATCH 1 PATCH TRANSDERM (13:35)
[2023-12-08] MEDS: PROCHLORPERAZINE EDISYLATE 10 MG/2 ML VIAL IV PUSH (13:35)
[2023-12-08] MEDS: methocarbamoL 750 MG TABLET PO (13:37)
[2023-12-08 13:38] LABS: Hemoglobin A1C 5.5 % (<5.7)
[2023-12-08] MEDS: IBUPROFEN 400 MG TABLET 800 MG PO (13:44)
[2023-12-08] MEDS: AZITHROMYCIN 500 MG/NS 250 ML 500 MG/250 ML BAG 250 MG IVPB (14:59)
[2023-12-08] MEDS: levETIRAcetam 500 MG TABLET PO (16:31)
[2023-12-08] MEDS: busPIRone HCL 10 MG TABLET 30 MG PO (16:31)
[2023-12-08] MEDS: IBUPROFEN 600 MG TABLET PO (22:02)
[2023-12-08] MEDS: QUEtiapine FUMARATE 100 MG TABLET 200 MG PO (22:10)
[2023-12-08] MEDS: hydrOXYzine pamoate 25 MG CAPSULE 50 MG PO (22:11)
[2023-12-08 22:22] LABS: Appearance Urine Clear (Clear); Bilirubin Urine Negative (Negative); Blood Urine Negative (Negative); Color Urine Yellow (Yellow); Glucose Urine UA Negative (Negative); Ketones Urine Negative (Negative); Leukocyte Esterase Ur Negative LEU/UL (Negative); Nitrate Urine Negative (Negative); Protein Urine Negative (Negative); Specific Grav Ur 1.013 (1.001-1.035); Urobilinogen Urine 0.2 mg/dL (<2.0); pH Urine 5.5 (5.0-9.0)
[2023-12-08 23:03] LABS: Add Urine Microscopic? NO
[2023-12-09] VITALS (20 sets, daily range): BP systolic 101–152; BP diastolic 49–84; PULSE 65–105; RESP 14–20; TEMP 36.1–36.9; O2SAT 92–99
[2023-12-09] MEDS: ALBUTEROL SULFATE NEB 2.5 MG/3 ML INH INHALATION ×4 (02:32→20:05)
[2023-12-09 04:43] LABS: Basophils Absolute Auto 0.1 K/mm3 (0.0-0.1); Basophils Percent Auto 0.4 % (0.2-1.2); Eosinophils Absolute Auto 0.4 K/mm3 (0-0.3); Eosinophils Percent Auto 2.9 % (0-4.4); Hematocrit 34.3 % (42.0-52.0); Immature Granulocyte Absolute 0.06 K/mm3 (0.00-0.031); Immature Granulocyte Percent A 0.5 % (0-0.5); Lymphocytes Absolute Auto 1.94 K/mm3 (0.9-3.2); Lymphocytes Percent Auto 14.9 % (18.3-44.2); Mean Corpuscular HGB Conc 32.1 g/dl (32-36); Mean Corpuscular Hemoglobin 30.7 pg (26-34); Mean Corpuscular Volume 95.8 fl (80-100); Monocytes Absolute Auto 0.6 K/mm3 (0.1-0.6); Monocytes Percent Auto 4.6 % (2.6-8.5); Neutrophils Percent Auto 76.7 % (45.5-73.1); Platelet Count Result 242 k/mm3 (150-375); Red Blood Count 3.58 M/mm3 (4.6-6.20); Red Cell Distribution Width 12.7 % (11.5-14.5)
[2023-12-09 04:56] LABS: Alanine Aminotransferase 40 U/L (6-50); Alkaline Phosphatase 63 U/L (38-126); Anion Gap 2 mmol/L (4-12); Aspartate Amino Transferase 33 U/L (17-59); Bilirubin,Total 0.2 mg/dL (0.2-1.3); Blood Urea Nitrogen 17 mg/dL (9-20); Calcium 7.9 mg/dL (8.4-10.2); Carbon Dioxide 29 mmol/L (22-30); Chloride 108 mmol/L (98-107); Estimated CRCL calculation 92 ml/min; Estimated Glomerular Filt Rate > 60; Glucose 110 mg/dL (65-110); Potassium 3.9 mmol/L (3.4-5.0); Sodium 139 mmol/L (137-145)
[2023-12-09 05:08] LABS: Procalcitonin 7.3 ng/mL
[2023-12-09] MEDS: SODIUM CHLORIDE 0.9% IV 1,000 ML 125 ML IV CONT (07:01)
[2023-12-09] MEDS: AZITHROMYCIN 500 MG/NS 250 ML 500 MG/250 ML BAG 250 MG IVPB (09:09)
[2023-12-09] MEDS: busPIRone HCL 10 MG TABLET 30 MG PO ×2 (09:10→17:41)
[2023-12-09] MEDS: MIRTAZAPINE 15 MG TABLET PO (09:10)
[2023-12-09] MEDS: BUPRENORPHINE/NALOXONE (*CRX) 4 MG/1 MG SL FILM 3 EACH SUBLINGUAL ×3 (09:10→17:40)
[2023-12-09] MEDS: GABAPENTIN 300 MG CAPSULE PO ×3 (09:10→17:41)
[2023-12-09] MEDS: SERTRALINE HCL 50 MG TABLET 100 MG PO (09:10)
[2023-12-09] MEDS: levETIRAcetam 500 MG TABLET PO ×2 (09:10→17:41)
[2023-12-09] MEDS: LIDOCAINE 5% PATCH 1 PATCH TOPICAL (09:11)
[2023-12-09] MEDS: PRAZOSIN HCL 1 MG CAPSULE PO (09:11)
[2023-12-09] MEDS: NICOTINE (*PBKC) 21 MG PATCH 1 PATCH TRANSDERM (09:11)
[2023-12-09] MEDS: guaiFENesin 12 HR 600 MG TABCR PO ×2 (09:11→20:13)
--- NOTE | 2023-12-09 15:45 | PM.IMPN ---
Progress Note: A&P Assessment and Plan (1) Sepsis: Code(s): A41.9 - Sepsis, unspecified organism Status: Acute (2) Pneumonia: Qualifiers: Laterality: bilateral Lung location: unspecified part of lung Pneumonia type: due to unspecified organism Qualified Code(s): J18.9 - Pneumonia, unspecified organism Code(s): J18.9 - Pneumonia, unspecified organism Status: Acute (3) Hypoxia: Code(s): R09.02 - Hypoxemia Status: Acute (4) Tachycardia: Code(s): R00.0 - Tachycardia, unspecified Status: Acute (5) Dyspnea: Code(s): R06.00 - Dyspnea, unspecified Status: Acute Plan Transfer to medical floor. Patient has persistent leukocytosis but improving. Will have to recheck a procalcitonin and white count in the morning. He has pneumonia multifocal complicated by active smoking history and moderate risk of decompensation. Full code. SCDs. no GI prophylaxis indicated. Subjective Date/time seen: 12/09/23 15:45 Interval history: No acute overnight events. Reports his chest pain is improved. Feels his breathing has improved as well. Girlfriend Layla at bedside. Review of Systems Review of Systems: All systems reviewed & are unremarkable except as noted in HPI and below (Subjective) Exam Const: General: comfortable and no acute distress Eyes: Pupils: Equal, round and reactive pupils present Neck: Neck: supple Resp: Effort & Inspection: normal respiratory effort Auscultation: clear to auscultation bilaterally Cardio: Rate: regular rate Rhythm: regular rhythm GI: GI Palp: Yes Soft to palpation and No Tenderness to palpation present (GI) Extrem: General: no edema Objective Data Vital Signs Vital Signs: Vital Signs - 24 hr 12/08/23 16:00 12/08/23 16:00 12/08/23 16:00 Temperature 97.7 F Pulse Rate 87 81 Respiratory Rate 18 Blood Pressure 139/77 Pulse Oximetry 94 100 Oxygen Delivery Room Air Fraction of Inspired Oxygen 12/08/23 18:00 12/08/23 19:47 12/08/23 20:40 Temperature 97.7 F Pulse Rate 80 67 77 Respiratory Rate 18 18 Blood Pressure 107/67 Pulse Oximetry 92 Oxygen Delivery Fraction of Inspired Oxygen 12/08/23 20:42 12/08/23 20:49 12/08/23 20:00 Temperature Pulse Rate 79 94 Respiratory Rate 18 Blood Pressure Pulse Oximetry 98 Oxygen Delivery Room Air Fraction of Inspired Oxygen 12/08/23 22:00 12/08/23 20:00 12/09/23 00:00 Temperature 97.8 F Pulse Rate 95 67 81 Respiratory Rate 18 18 Blood Pressure 101/55 L Pulse Oximetry 92 96 Oxygen Delivery Room Air Fraction of Inspired Oxygen 12/09/23 00:00 12/09/23 02:32 12/09/23 02:41 Temperature Pulse Rate 81 77 74 Respiratory Rate 18 18 18 Blood Pressure Pulse Oximetry 96 Oxygen Delivery Room Air Fraction of Inspired Oxygen 12/09/23 00:00 12/09/23 02:00 12/09/23 04:07 Temperature 97.7 F Pulse Rate 97 96 69 Respiratory Rate 18 Blood Pressure 105/60 Pulse Oximetry 96 Oxygen Delivery Fraction of Inspired Oxygen 12/09/23 04:00 12/09/23 04:00 12/09/23 05:59 Temperature Pulse Rate 82 69 78 Respiratory Rate 18 Blood Pressure Pulse Oximetry 96 Oxygen Delivery Room Air Fraction of Inspired Oxygen 12/09/23 07:17 12/09/23 08:43 12/09/23 08:43 Temperature 97.7 F Pulse Rate 65 90 Respiratory Rate 18 18 Blood Pressure 106/49 L Pulse Oximetry 92 94 Oxygen Delivery Room Air Fraction of Inspired Oxygen 12/09/23 08:53 12/09/23 08:00 12/09/23 08:00 Temperature Pulse Rate 105 H 67 Respiratory Rate 18 Blood Pressure Pulse Oximetry Oxygen Delivery Room Air Fraction of Inspired Oxygen 12/09/23 10:00 12/09/23 12:00 12/09/23 13:26 Temperature 98.0 F Pulse Rate 105 H 96 92 Respiratory Rate 20 18 Blood Pressure 152/84 H Pulse Oximetry 99 Oxygen Delivery Fraction of Inspired Oxygen
[2023-12-09] MEDS: hydrOXYzine pamoate 25 MG CAPSULE 50 MG PO (17:41)
[2023-12-09] MEDS: QUEtiapine FUMARATE 100 MG TABLET 200 MG PO (20:14)
--- NOTE | 2023-12-09 20:16 | PC.NURSE ---
This patient, Wojciech Bonilla, was transferred to room 312- on 12/09/23 at 2016. Personal belongings sent with patient. Report given to ABAD Mejia. Appropriate documentation sent with patient.
[2023-12-10 02:38] VITALS: PULSE 95; RESP 16
[2023-12-10] MEDS: ALBUTEROL SULFATE NEB 2.5 MG/3 ML INH INHALATION ×2 (02:40→07:48)
[2023-12-10 02:46] VITALS: PULSE 97; RESP 16
[2023-12-10 05:42] VITALS: BP 112/70; PULSE 83; RESP 14; TEMP 36.1; O2SAT 95
[2023-12-10 06:13] LABS: Basophils Percent Auto 0.4 % (0.2-1.2); Eosinophils Absolute Auto 0.4 K/mm3 (0-0.3); Eosinophils Percent Auto 5.9 % (0-4.4); Hematocrit 33.8 % (42.0-52.0); Hemoglobin 10.9 g/dL (14.0-18.0); Immature Granulocyte Absolute 0.02 K/mm3 (0.00-0.031); Immature Granulocyte Percent A 0.3 % (0-0.5); Lymphocytes Absolute Auto 1.86 K/mm3 (0.9-3.2); Lymphocytes Percent Auto 25.4 % (18.3-44.2); Mean Corpuscular HGB Conc 32.2 g/dl (32-36); Mean Platelet Volume 9.1 fl (7.4-10.4); Monocytes Absolute Auto 0.6 K/mm3 (0.1-0.6); Monocytes Percent Auto 8.7 % (2.6-8.5); Neutrophils Absolute Auto 4.3 K/mm3 (1.3-6.7); Neutrophils Percent Auto 59.3 % (45.5-73.1); Platelet Count Result 260 k/mm3 (150-375); Red Blood Count 3.52 M/mm3 (4.6-6.20); Red Cell Distribution Width 12.7 % (11.5-14.5); White Blood Count 7.3 K/mm3 (4.5-10.0)
[2023-12-10 06:21] LABS: Anion Gap 2 mmol/L (4-12); Blood Urea Nitrogen 12 mg/dL (9-20); Calcium 8.3 mg/dL (8.4-10.2); Carbon Dioxide 30 mmol/L (22-30); Chloride 107 mmol/L (98-107); Estimated CRCL calculation 82 ml/min; Estimated Glomerular Filt Rate > 60; Glucose 94 mg/dL (65-110); Magnesium 1.9 mg/dL (1.6-2.3); Potassium 3.7 mmol/L (3.4-5.0); Sodium 139 mmol/L (137-145)
[2023-12-10 06:53] LABS: Procalcitonin 4.3 ng/mL
[2023-12-10 07:48] VITALS: PULSE 80; RESP 16; O2SAT 95
[2023-12-10 07:56] VITALS: PULSE 83; RESP 16
--- NOTE | 2023-12-10 08:58 | PM.DS ---
DS: Admitting Diagnosis Discharge Date December 10, 2023 Admitting Diagnosis Chest pain DS: Discharge Diagnosis Discharge Diagnosis (1) Sepsis: Code(s): A41.9 - Sepsis, unspecified organism Status: Acute (2) Pneumonia: Qualifiers: Laterality: bilateral Lung location: unspecified part of lung Pneumonia type: due to unspecified organism Qualified Code(s): J18.9 - Pneumonia, unspecified organism Code(s): J18.9 - Pneumonia, unspecified organism Status: Acute DS: Summary Hospital Course Hospital Course: A pleasant 43-year-old male with PMH migraines, seizures, bipolar disorder, depression and anxiety, hypertension, PTSD, eczema, active tobacco abuse. Patient is currently residing at [facility] for a 28 day stay to get his affairs in order, he is homeless currently. He arrives to [facility] from [place] with complaints of worsening left-sided chest pain while he was sleeping. He recently fell onto a baseball while playing catch and he has had lingering discomfort on the left chest wall which is worsened by deep breathing and palpation. ER evaluation demonstrated troponin negative x3 and EKG without acute ischemia. CTA of chest negative for pulmonary embolus but positive for patchy bilateral pneumonia worse in the right lower lobe. Patient was placed on oxygen and admitted on 12/08/2023 for sepsis, hypoxia, community-acquired pneumonia, bacterial. He is treated with ceftriaxone and azithromycin. On 12/10/2023 the patient is breathing well on room air with no more complaints. He is stable for discharge back to [facility]. He has received 3 days of azithromycin will be discharged on a another 3 days of Augmentin. Adverse effects, risk and benefits discussed with the patient to which he understands and agrees to the above plan. He is an active tobacco user been counseled on the detrimental of tobacco and nicotine. He is to continue nicotine patch on discharge. Advised to follow up with PCP within 2 weeks. He was full code. Time Spent with Patient Time attestation: Total time spent providing and/or coordinating discharge services: Exam Const: General: comfortable and no acute distress Eyes: Pupils: Equal, round and reactive pupils present Neck: Neck: supple Resp: Effort & Inspection: normal respiratory effort Auscultation: clear to auscultation bilaterally Cardio: Rate: regular rate Rhythm: regular rhythm GI: GI Palp: Yes Soft to palpation and No Tenderness to palpation present (GI) Extrem: General: no edema DS: Data Data Completed and Pending Labs on day of discharge: Labs from last 24 hours 12/10/23 05:38 WBC 7.3 RBC 3.52 L Hgb 10.9 L Hct 33.8 L MCV 96.0 MCH 31.0 MCHC 32.2 RDW 12.7 Plt Count 260 MPV 9.1 Immature Gran % (Auto) 0.3 Neut % (Auto) 59.3 Lymph % (Auto) 25.4 [place] % (Auto) 8.7 H Eos % (Auto) 5.9 H Baso % (Auto) 0.4 Lymph # (Auto) 1.86 [place] # (Auto) 0.6 Eos # (Auto) 0.4 H Baso # (Auto) 0.0 Abs Immat Gran (auto) 0.02 Absolute Neuts (auto) 4.3 Absolute Nucleated RBC 0.000 Nucleated RBC % 0.0 Sodium 139 Potassium 3.7 Chloride 107 Carbon Dioxide 30 Anion Gap 2 L BUN 12 D Creatinine 0.90 Estim Creat Clear Calc 82 Estimated GFR > 60 Glucose 94 Calcium 8.3 L Magnesium 1.9 Procalcitonin 4.3 Preliminary micro results at discharge 12/08/23 09:03 Blood Culture - Preliminary Blood 12/08/23 09:23 Blood Culture - Preliminary Blood Discharge Plan Discharge Attending physician on discharge: Ewa Key Discharging Clinician: Ewa Key Patient Disposition: Other Activity: may shower Diet: as tolerated Patient Instructions: Antibiotic Form, How to Stop Smoking (DC) Stand Alone Forms: General Discharge Information Follow-up/Referrals: Dagoberto,SANJAY Wolf [Primary Care Provider] - Call for Appointment Discharge Medications: New amoxicillin-pot clavul
== END 2023-12-10 09:40 | disposition other institution (70) ==
LOC: ANHED 09:08 → ANHIMU 09:40 → ANH3MEDSUR 12-10 08:57 → ANHIMU 12-11 07:54
PROVIDERS: Emergency Medicine; Student in an Organized Health Care Education/Training Program; Admitting Provider Internal Medicine; Emergency Provider Emergency Medicine; PCP Physician Assistant; Visit Provider General Practice
DX: A41.9 Sepsis, unspecified organism (principal); J18.9 Pneumonia, unspecified organism; R09.02 Hypoxemia; G43.909 Migraine, unspecified, not intractable, without status migrainosus; R73.9 Hyperglycemia, unspecified; R00.0 Tachycardia, unspecified; F41.8 Other specified anxiety disorders; I10 Essential (primary) hypertension; F17.210 Nicotine dependence, cigarettes, uncomplicated; L30.9 Dermatitis, unspecified; Z20.822 Contact with and (suspected) exposure to COVID-19
CPT/HCPCS: 36415; 71045; 71275; 80048; 80053; 81003; 82948; 83036; 83690; 83735; 84145; 84484; 85025; 85610; 85730; 87040; 87637; 93005; 94640; 96361; 96365; 96366; 96368; 96375; 99285; A9270; G0378; G0379; J0456; J0696; J0780; J1200; J7030; Q9967